=== PATIENT | female | born 1960 | race Caucasian/White ===

== ENCOUNTER 2020-10-12 15:31 | Emergency (ER) | payer MEDICAID ==
[~2020-10-12] VITALS: Ht 175.3 cm; Wt 106.8 kg
[~2020-10-12 15:31] MED LIST: ALBU8HFA PO
[2020-10-12] MEDS ORDERED: azithromycin 250mg tablet PO ONE (15:45)
[2020-10-12] MEDS ORDERED: predniSONE 20 mg tablet PO ONE (15:45)
[2020-10-12] MEDS ORDERED: PRED20TA PO (16:16)
[2020-10-12] MEDS ORDERED: NEBU1EAC (16:16)
[2020-10-12] MEDS ORDERED: IPRA3AMP31 IH (16:16)
[2020-10-12] MEDS ORDERED: AZIT250T83 PO (16:16)
== END 2020-10-12 16:22 | disposition home or self-care (01) ==
LOC: ER 15:32
DX: J44.9 Chronic obstructive pulmonary disease, unspecified (principal); F17.200 Nicotine dependence, unspecified, uncomplicated; Z20.828 Contact with and (suspected) exposure to other viral communicable diseases; Z56.0 Unemployment, unspecified; Z88.2 Allergy status to sulfonamides; Z79.899 Other long term (current) drug therapy
CPT/HCPCS: 36415; 71045; 87635; 99284; J7512

== ENCOUNTER 2022-02-10 21:23 | Emergency (ER) | payer MEDICAID ==
[~2022-02-10] VITALS: Ht 175.3 cm; Wt 108.2 kg
[~2022-02-10 21:23] MED LIST changes: +IPRA3AMP31 IH; +NEBU1EAC
[2022-02-10 22:23] VITALS: BP 175/98
== END 2022-02-11 01:19 | disposition left against medical advice (07) ==
LOC: ER 21:23
DX: M25.552 Pain in left hip (principal); M25.551 Pain in right hip; Z53.21 Procedure and treatment not carried out due to patient leaving prior to being seen by health care provider